=== PATIENT | female | born 1960 | race African-American/Black ===

== ENCOUNTER 2017-08-27 10:47 | Day surgery (SDC) | payer OTHER ==
[2017-08-26 08:25] VITALS: BMI 42.3
[2017-08-27] MEDS ORDERED: PROPOFOL 200 MG/20 ML VIAL ONE (13:51)
[2017-08-27] MEDS ORDERED: Lidocaine 1% PF 5 ML VIAL ONE (13:51)
--- NOTE | 2017-08-27 14:55 | OP ---
DATE OF PROCEDURE: 08/27/2017 PROCEDURE: Colonoscopy. SURGEON: Rodrick Krueger M.D. ANESTHESIA: Pain medications given by Anesthesiology Department. PREOPERATIVE DIAGNOSIS: Screening. POSTOPERATIVE DIAGNOSIS: Normal colon exam. PROCEDURE IN DETAIL: A written consent was obtained prior to procedure. After adequate sedation, a rectal exam was performed and was normal. Endoscope was advanced to the cecum. The quality of the b owel prep was good. The cecum, ascending colon, hepatic flexure, transverse colon, splenic flexure, descending colon, and rectosigmoid colon all appeared normal. Retroflexion was normal. The patient tolerated procedure well. ASSESSMENT: Normal colon exam. RECOMMENDATIONS: Repeat screening in 10 years.
--- NOTE | 2017-08-27 15:56 | OP ---
DATE OF PROCEDURE: 08/27/2017 PROCEDURE: Esophagogastroduodenoscopy with Barr dilatation. PHYSICIAN: Dr. Krueger. JAVA SOFTWARE DEVELOPER: Medication given per Anesthesiology Department. PREPROCEDURE DIAGNOSES: 1. Atypical chest pain. 2. Negative cardiac evaluation. 3. History of gastroesophageal reflux disease. POSTOPERATIVE DIAGNOSES: 1. Distal esophageal stricture. 2. A 2 cm hiatal hernia. 3. Pancreatic rest. 4. Otherwise normal upper endoscopy. PROCEDURE IN DETAIL: A written consent was obtained prior to procedure. After adequate sedation, fu ll view endoscope was advanced down the stomach under direct vision to the third portion of duodenum. The duodenum including the bulb appeared normal. Pylorus is patent. The antrum appeared normal. In the distal body, a pancreatic rest was noted. Retroflexion showed a 2 cm hiatal hernia. The esop hagus was inspected. At 40 cm from the incisors, a benign intrinsic stricture was encountered. The lower, mid, and upper esophagus appeared normal otherwise. The endoscope was removed. Dilation was then performed using a 54-[place] Barr dilator. Repeat endoscopy did not show any complications. ASSESSMENT: 1. Benign lower esophageal stricture, status post dilation. 2. Small hiatal hernia. 3. Benign pancreatic rest. RECOMMENDATIONS: Continue pantoprazole 40 mg q.a.m.
== END 2017-08-27 14:21 | disposition home or self-care (01) ==
LOC: SDC 10:47
PROVIDERS: ATTEND Internal Medicine Gastroenterology
PROC: 0D758ZZ Dilation of Esophagus, Via Natural or Artificial Opening Endoscopic (ICD-10-PCS; principal; 2017-08-27)
PROC: 0DJD8ZZ Inspection of Lower Intestinal Tract, Via Natural or Artificial Opening Endoscopic (ICD-10-PCS; principal; 2017-08-27)
DX: Z12.11 Encounter for screening for malignant neoplasm of colon (principal); K21.9 Gastro-esophageal reflux disease without esophagitis; K44.9 Diaphragmatic hernia without obstruction or gangrene; Q85.8 Other phakomatoses, not elsewhere classified; K22.2 Esophageal obstruction; Z79.82 Long term (current) use of aspirin; Z79.51 Long term (current) use of inhaled steroids; Z79.899 Other long term (current) drug therapy; Z88.0 Allergy status to penicillin; Z91.011 Allergy to milk products; Z91.041 Radiographic dye allergy status
CPT/HCPCS: J2001; J2704

== ENCOUNTER 2017-11-04 11:03 | Outpatient (CLI) | payer OTHER ==
--- NOTE | 2017-11-11 16:16 | MMO ---
BILATERAL SCREENING MAMMOGRAMS: 11/04/17 HISTORY: 57-year-old female patient presenting for screening mammography. COMPARISON: None available. This will serve as the patient's baseline screening mammogram. Prior study is unable to be obtained. This study is interpreted with the assistance computer aided detection. FINDINGS: The pectoralis muscles are unable to be visualized or imaged on each MLO view related to patient's cu rrent condition. The study was performed in wheelchair and patient has Parkinson's disease and tremor s are unable to be controlled. According to the surfacing technician these are the best images that were able to be obtained. There are scattered fibroglandular densities seen in each breast. There is a punctate benign appearin g calcification in the right breast. No dominant mass or suspicious grouping of microcalcifications a re seen in either breast. IMPRESSION: BIRADS 2: Benign Finding(s) Routine annual screening mammography (for women over age 40). POS: [facility]
== END 2017-11-04 11:04 | disposition home or self-care (01) ==
LOC: SCSMAMMO 11:03
PROVIDERS: ATTEND Family Medicine
DX: Z12.31 Encounter for screening mammogram for malignant neoplasm of breast (principal)
CPT/HCPCS: 77067